=== PATIENT | female | born 2000 | race Caucasian/White ===

== ENCOUNTER 2021-10-14 10:43 | Emergency (ER) | payer OTHER, SELFPAY ==
[2021-10-14] MEDS ORDERED: Cyclobenzaprine 10 MG TAB ONE (11:51)
[2021-10-14] MEDS ORDERED: predniSONE 20 MG TAB ONE ×2 (11:51→11:55)
[2021-10-14] MEDS ORDERED: Ketorolac Tromethamine 30 MG/ML VIAL ONE (11:51)
== END 2021-10-14 11:08 | disposition home or self-care (01) ==
LOC: CSHERS 10:43
DX: S76.311A Strain of muscle, fascia and tendon of the posterior muscle group at thigh level, right thigh, initial encounter (principal); E03.9 Hypothyroidism, unspecified; E66.9 Obesity, unspecified
CPT/HCPCS: 96372; 99283; J1885; J7512

== ENCOUNTER 2023-02-09 19:44 | Emergency (ER) | payer OTHER, SELFPAY ==
[2023-02-09] MEDS ORDERED: Boostrix 0.5 ML (Tdap) VIAL (>/=7 yrs of age) ONE (20:38)
== END 2023-02-09 21:15 | disposition home or self-care (01) ==
LOC: CSHERS 19:44
DX: S91.332A Puncture wound without foreign body, left foot, initial encounter (principal); W45.0XXA Nail entering through skin, initial encounter; Z23 Encounter for immunization
CPT/HCPCS: 90471; 90715

== ENCOUNTER 2023-03-06 09:46 | Emergency (ER) | payer SELFPAY | END 2023-03-06 10:24 | disposition home or self-care (01) | LOC: CSHERS 09:46 | DX: H60.501 Unspecified acute noninfective otitis externa, right ear (principal) | CPT/HCPCS: 99283 ==